=== PATIENT | female | born 1995 | race Caucasian/White ===

== ENCOUNTER 2022-04-16 12:44 | Emergency (ER) | payer MEDICAID, SELFPAY ==
[2022-04-16 13:30] VITALS: TEMP 36.6; BMI 25.6
[2022-04-16 14:03] LABS: Basophils % 0.3 %; Eosinophils # 0.1 10^3/uL (0.0-0.8); Eosinophils % 1.8 %; Hematocrit 31.7 % (37.0-47.0); Hemoglobin 10.3 g/dL (11.5-15.3); Lymphocytes % 14.7 %; Mean Corpuscular HGB Conc 32.5 g/dL (30.0-36.0); Mean Corpuscular Hemoglobin 29.1 pg (28.0-34.0); Mean Corpuscular Volume 89.5 fl (81-99); Mean Platelet Volume 12.1 fL (7.4-10.4); Monocytes # 0.5 10^3/uL (0.2-0.9); Monocytes % 7.5 %; Neutrophils % 75.3 %; Nucleated Red Blood Cells % 0 %; Platelet Count 219 10^3/cmm (130-400); Red Blood Count 3.54 10^6/uL (4.1-5.3); Red Cell Distribution Width 14.4 % (12.1-15.1); White Blood Count 6.8 10^3/uL (4.0-10.0)
[2022-04-16 14:32] LABS: Add Urine Microscopic? YES; Bilirubin Urine Neg (Negative); Blood Urine Neg (Negative); Glucose Urine UA Norm (Normal); Ketones Urine Negative (Negative); Leukocyte Esterase Urine Negative (Negative); Nitrate Urine Negative (Negative); Protein Urine Neg (Negative); Urine Appearance Cloudy (CLEAR); Urine Color Yellow (Yellow); Urobilinogen Urine Norm (Negative); pH Urine 7 (5-7)
[2022-04-16 14:34] LABS: HCG, Serum Qual Positive (Negative)
[2022-04-16 14:35] VITALS: BP 119/81; PULSE 92; TEMP 36.6; O2SAT 97
[2022-04-16 14:37] LABS: Amorphous Sediment Urine 2+ /hpf; Bacteria Urine 1+ /hpf
[2022-04-16 14:38] LABS: Add Urine Culture? No
--- NOTE | 2022-04-16 14:38 | ED_ITS ---
HPI - Extremity Problem General: Chief complaint: Extremity Problem,Nontraumatic Stated complaint: hands/feet swelling Time Seen by Provider: 04/16/22 14:38 History of Present Illness: 26-year-old female comes in today at 19 weeks with complaints of swelling in the hands and feet. Patient also reports some pain in the hands and feet and some little sores. Patient thinks t hat she might have smoked marijuana last night that was dosed with methamphetamines. Patient is very restless on exam. Patient appears in no pain. Patient appears nontoxic. Review of Systems ENMT: Reports: throat pain Musc: Reports: extremity pain and extremity swelling Skin/Breast: Reports: new lesions Physical Exam Const: COMMON NORMALS: alert HENMT: COMMON NORMALS: normocephalic HEAD & SCALP: normocephalic THROAT: abnormal tonsil (Abnormal texture to the external tonsils bilaterally) Neck/C-Spine: COMMON NORMALS: full ROM Chest: COMMONS NORMALS: normal inspection of the chest Resp: COMMON NORMALS: normal respiratory effort and clear to auscultation bilaterally AUSCULTATION: clear to auscultation bilaterally Cardio: COMMON NORMALS: regular rate and regular rhythm RATE: regular rate RHYTHM: regular rhythm Extremity: COMMON NORMALS: normal to inspection NARRATIVE EXTREMITY EXAM: No swelling or significant lesions noted to the hands and feet. Patient has some small papules in the webbing of the toes and along a few areas of the fingers. Neuro: SENSORIUM/ORIENTATION: Yes alert Psych: ATTITUDE: Yes paranoid (Hypervigilant, overly concerned of superficial abnormality) ACTIVITY/MOTOR BEHAVIOR: Yes appropriate eye contact and Yes fidgeting SPEECH: Yes rapid Skin: LESIONS: lesion noted (Picking lesions to the face.) and other (Superficial papules to the hands and feet) Course Vital Signs: Vital signs: Vital Signs Temperature 97.8 F 04/16/22 14:35 Pulse Rate 92 04/16/22 14:35 Blood Pressure 119/81 04/16/22 14:35 Pulse Oximetry 97 04/16/22 14:35 MDM - Extremity (Nontraumatic) Medical Decision Making 26-year-old female comes in today with complaints of hand and foot pain with small lesions. On exam there is superficial papules to the webbing of the fingers and hands. Nothing is noted to the wrist. Patient seems hypervigilant and slightly paranoid. Patient does report that she had smoked marijuana last night and she thinks it might of been laced with methamphetamines. Patient is also has noticeable picking lesions to the face. Differential diagnosis includes but not limited to electrolyte imbalance, dehydration, contact dermatitis, scabies, substance abuse disorder. Patient does have some mild decrease in her potassium at 2.9. She was given 40 mg of potassium. Urinalysis was clear. CBC was unremarkable. Strep test was negative. Patient also has some abnormality to her bilateral tonsils most likely it appears to be HPV/condyloma type lesions. Urine drug screen was positive for methamphetamines. I recommend patient be followed up with primary care/[facility] REPRESENTATIVE next week for recheck potassium. Patient was should use hydrocortisone creams to her hands and feet for the lesions as it looks like a dyshidrotic eczema. Encourage patient not to use drugs or other substances unless prescribed by physician. Patient reported understanding agreed to plan. Lab Data : 04/16/22 13:41 04/16/22 13:41 Laboratory Results WBC 6.8 10^3/uL (4.0-10.0) 04/16/22 13:41 RBC 3.54 10^6/uL (4.1-5.3) L 04/16/22 13:41 Hgb 10.3 g/dL (11.5-15.3) L 04/16/22 13:41 Hct 31.7 % (37.0-47.0) L 04/16/22 13:41 MCV 89.5 fl (81-99) 04/16/22 13:41 MCH 29.1 pg (28.0-34.0) 04/16/22 13:41 MCHC 32.5 g/dL (30.0-36.0) 04/16/22 13:41 RDW 14.4 % (12.1-15.1) 04/16/22 13:41 Plt Count 219 10^3/cmm (130-400) 04/16/22 13:41 MPV 12.1 fL (7.4-10.4) H 04/16/22 13:41 Neut % (Auto) 75.3 % 04/16/22 13:41 Lymph % (Auto) 14.7 % 04/16/22 13:41 [place] % (Auto) 7.5 % 04/16/22 13:41 Eos % (Auto) 1.8 % 04/16/22 13:41 Baso % (Auto) 0.3 % 04/16/22 13:41 Neut # (Auto) 5.10 10^3/uL (1.8-7.7) 04/16/22 13:41 Lymph # (Auto) 1.0 10^3/uL (0.8-4.8) 04/16/22 13:41 [place] # (Auto) 0.5 10^3/uL (0.2-0.9) 04/16/22 13:41 Eos # (Auto) 0.1 10^3/uL (0.0-0.8) 04/16/22 13:41 Baso # (Auto) 0.0 10^3/uL (0.0-0.1) 04/16/22 13:41 Nucleated RBC % (auto) 0 % 04/16/22 13:41 Nucleated RBCs # 0.0 /100WBC 04/16/22 13:41 Sodium 138 mmol/L (136-145) 04/16/22 13:41 Potassium 2.9 mmol/L (3.5-5.1) L 04/16/22 13:41 Chloride 105 mmol/L (98-107) 04/16/22 13:41 Carbon Dioxide 22 mmol/L (22-29) 04/16/22 13:41 Anion Gap 13.9 (5-19) 04/16/22 13:41 BUN 5 mg/dL (6-20) L 04/16/22 13:41 Creatinine 0.5 mg/dL (0.5-0.9) 04/16/22 13:41 GFR Calculation 148.0 mL/min (90-130) H 04/16/22 13:41 Glucose 84 mg/dL (65-115) 04/16/22 13:41 Calculated Osmolality 282 mOsm/kg (285-295) L 04/16/22 13:41 Calcium 8.6 mg/dL (8.5-10.5) 04/16/22 13:41 Total Bilirubin 0.2 mg/dL (0.15-1.2) 04/16/22 13:41 AST 19 U/L (0-32) 04/16/22 13:41 ALT 16 U/L (0-33) 04/16/22 13:41 Alkaline Phosphatase 73 IU/L (35-105) 04/16/22 13:41 Total Protein 5.6 g/dL (6.6-8.7) L 04/16/22 13:41 Albumin 3.0 g/dL (3.5-5.2) L 04/16/22 13:41 Globulin 2.6 g/dL (1.3-4.6) 04/16/22 13:41 HCG, Qual Positive (Negative) H 04/16/22 13:41 Urine Color Yellow (Yellow) 04/16/22 13:41 Urine Appearance Cloudy (CLEAR) 04/16/22 13:41 Urine pH 7 (5-7) 04/16/22 13:41 Ur Specific [place] 1.010 (1.005-1.030) 04/16/22 13:41 Urine Protein Neg (Negative) 04/16/22 13:41 Urine Glucose (UA) Norm (Normal) 04/16/22 13:41 Urine Ketones Negative (Negative) 04/16/22 13:41 Urine Blood Neg (Negative) 04/16/22 13:41 Urine Nitrate Negative (Negative) 04/16/22 13:41 Urine Bilirubin Neg (Negative) 04/16/22 13:41 Urine Urobilinogen Norm mg/dL (Negative) 04/16/22 13:41 Ur Leukocyte Esterase Negative (Negative) 04/16/22 13:41 Urine RBC None /hpf (0-2) 04/16/22 13:41 Urine WBC None /hpf (0-5) 04/16/22 13:41 Ur Squamous Epith Cells 10-15 /hpf (0-5) H 04/16/22 13:41 Amorphous Sediment 2+ /hpf 04/16/22 13:41 Urine Bacteria 1+ /hpf (NONE) H 04/16/22 13:41 Urine Opiates Screen Negative ng/mL (Negative) 04/16/22 13:41 Ur Barbiturates Screen Negative ng/mL (Negative) 04/16/22 13:41 Ur Phencyclidine Scrn Negative ng/mL (Negative) 04/16/22 13:41 Ur Amphetamines Screen Positive ng/mL (Negative) H 04/16/22 13:41 U Benzodiazepines Scrn Positive ng/mL (Negative) H 04/16/22 13:41 Urine Cocaine Screen Negative ng/mL (Negative) 04/16/22 13:41 U Marijuana (THC) Screen Positive ng/mL (Negative) H 04/16/22 13:41 Group A Strep Rapid Negative (Negative) 04/16/22 14:54 Discharge Plan Discharge Patient Disposition: Home Clinical Impression: Hypokalemia, Dyshidrosis [pompholyx] Qualifiers: Weeks of gestation: 19 weeks Qualified Code(s): Z3A.19 - 19 weeks gestation of Pharyngitis Qualifiers: Pharyngitis/tonsillitis etiology: unspecified etiology Qualified Code(s): J02.9 - Acute pharyngitis, unspecified Condition: Stable Prescriptions: New hydrocortisone 1 % cream 1 applic topical TID PRN (Reason: rash) Qty: 28.35 0RF Discharge Orders: Discharge ED (Routine); Ordered 04/16/22 Ordered By: Santhosh Marlow Discharge Diet: Usual diet Discharge Activity: Increase activity as tolerated Patient Instructions: Hypokalemia (ED) Activity Restrictions/Additional Instructions: Drink plenty of water. Make sure to drink Gatorade solution if sweating a lot. Healthy diet. Follow-up with primary care in 2 to 3 days for recheck. Return to ER for new concerns or worsening symptoms like high fever greater than 100.3, inability to hold fluids down, or abnormal vaginal bleeding. Coding Level of Care Code ED Track Laying Machine Operator for Chg Fwd Exam Comprehensive
[2022-04-16 14:39] LABS: Alanine Aminotransferase 16 U/L (0-33); Alkaline Phosphatase 73 IU/L (35-105); Anion Gap 13.9 (5-19); Aspartate Amino Transferase 19 U/L (0-32); Blood Urea Nitrogen 5 mg/dL (6-20); Calcium 8.6 mg/dL (8.5-10.5); Carbon Dioxide 22 mmol/L (22-29); Chloride 105 mmol/L (98-107); Globulin 2.6 g/dL (1.3-4.6); Glucose 84 mg/dL (65-115); Osmolality Calculated 282 mOsm/kg (285-295); Sodium 138 mmol/L (136-145); Total Bilirubin 0.2 mg/dL (0.15-1.2); Total Protein 5.6 g/dL (6.6-8.7)
[2022-04-16 14:56] LABS: Potassium 2.9 mmol/L (3.5-5.1)
[2022-04-16 15:16] LABS: Rapid Strep A Test Negative (Negative)
[2022-04-16 15:18] LABS: Amphetamines Screen Urine Positive (Negative); Barbiturates Screen Urine Negative (Negative); Benzodiazepines Screen Urine Positive (Negative); Cocaine Screen Urine Negative (Negative); Opiate Screen Urine Negative (Negative); PCP Screen Urine Negative (Negative); THC Screen Urine Positive (Negative)
[2022-04-16] MEDS: potassium chloride ER 20 mEq Tablet 40 MEQ PO (15:42)
[2022-04-16] MEDS: hydrocortisone 1% cream 28 gm 1 APPLIC TOPICAL (15:42)
== END 2022-04-16 15:44 | disposition home or self-care (01) ==
PROVIDERS: Emergency Provider Nurse Practitioner Family
DX: O26.892 Other specified pregnancy related conditions, second trimester (principal); L30.1 Dyshidrosis [pompholyx]; E87.6 Hypokalemia; J02.9 Acute pharyngitis, unspecified; Z3A.19 19 weeks gestation of pregnancy
CPT/HCPCS: 80053; 80306; 81001; 84703; 85025; 87081; 87880; 99283

== ENCOUNTER 2022-06-20 18:10 | Outpatient (CLI) | payer MEDICAID, SELFPAY ==
[2022-06-20] VITALS (9 sets, daily range): BP systolic 127–142; BP diastolic 94–101; PULSE 112–126; RESP 16; TEMP 36.4; O2SAT 100; BMI 31.6
[2022-06-20 18:41] LABS: Nitrazine Paper, PH Negative
[2022-06-20 19:03] LABS: Actim Prom Negative
== END 2022-06-20 19:18 | disposition home or self-care (01) ==
LOC: OPOB 18:17 → OBGYN 18:18
PROVIDERS: Visit Provider Family Medicine
DX: O26.899 Other specified pregnancy related conditions, unspecified trimester (principal); Z3A.00 Weeks of gestation of pregnancy not specified
CPT/HCPCS: 59025; 83986; 84112; 99211